=== PATIENT | female | born 1945 | race Caucasian/White ===

== ENCOUNTER 2019-04-01 08:49 | Emergency (ER) | payer OTHER ==
[~2019-04-01] VITALS: Ht 157.5 cm; Wt 47.6 kg
[2019-04-01] MEDS ORDERED: PROGESTERONE100 MG PO (08:57)
[2019-04-01 09:28] LABS: ABSOLUTE NEUTROPHILS 4.6 thou/uL (1.4-8.2); BASOPHILS 0.4 % (0.0-2.0); HEMATOCRIT 43.5 % (37.0-47.0); HEMOGLOBIN 14.1 gm/dL (12.0-15.0); LYMPHOCYTES 16.1 % (24.0-44.0); MCH 29.4 pg (26.0-34.0); MCHC 32.3 g/dL (28.0-37.0); MCV 90.9 fL (80.0-100.0); MONOCYTES 9.4 % (1.0-8.0); PLATELET COUNT 278 thou/uL (150-400); POLYS 73.1 % (36.0-66.0); RBC 4.79 mil/uL (4.20-5.00); RDW 13.5 % (10.5-14.5); WBC 6.3 thou/uL (4.0-11.0)
[2019-04-01 09:35] LABS: ANION GAP 7 mmol/L (7-16); BUN 16 mg/dL (7-18); CALCIUM 9.3 mg/dL (8.5-10.1); CHLORIDE 103 mmol/L (98-107); CO2 30 mmol/L (21-32); GLUCOSE 98 mg/dL (74-106); POTASSIUM 4.4 mmol/L (3.5-5.1); SODIUM 140 mmol/L (136-145)
[2019-04-01 09:43] LABS: TROPONIN-I <0.06 ng/mL (<0.06)
[2019-04-01 11:38] VITALS: BP 127/75
--- NOTE | 2019-04-01 11:47 | EKG ---
[address] [address] ELECTROCARDIOGRAM REPORT Name: TERRANCE LOZA Room #: [facility]#: [id number] Admission: 04/01/19 Attend Phys: Discharge: 04/01/19 Date of : 49 Report #: [id number] THIS REPORT FOR: //name// [facility] ED Test Date: 2019-04-01 Test Time: 09:04:55 Pat Name: TERRANCE LOZA Department: Room: Gender: F Travel Assistant: MARC : 1945 Requested By: Yung Nazario Order Number: [id number] MD: Reagan Santiago Measurements Intervals [place] Rate: 77 P: 61 VA: 144 QRS: 36 QRSD: 84 T: 37 QT: 368 QTc: 417 Interpretive Statements Sinus rhythm Minimal ST elevation, inferior leads Baseline wander in lead(s) I,II,aVR,V2,V3,V4,V5,V6 Compared to ECG 08/08/2002 04:10:59 ST (T wave) deviation now present Electronically Signed On 04-01-2019 11:47:16 POLICY ANALYST by Reagan Santiago [email or web address] <ELECTRONICALLY SIGNED> By: Reagan Santiago MD 04/01/19 1147 0904 Reagan Santiago MD /EPI
== END 2019-04-01 11:39 | disposition home or self-care (01) ==
LOC: ER 08:49
PROVIDERS: Emergency Medicine
DX: R06.00 Dyspnea, unspecified (principal)